=== PATIENT | male | born 1945 | race Caucasian/White ===

== ENCOUNTER → 2017-02-01 | Outpatient (CLI) | payer MEDICARE, BC ==
[~2017-02-01] MED LIST: ACET-2723 PO; AMLO10TA62 PO; ASPI-1085 PO; ATOR80TA26 PO; CALC-946 PO; CYAN1TAB46 PO; DOCU-129 PO; FENO160T9 PO; FISH OIL OMEGA1 EACH PO; FLEC100T2 PO; HYDR-4246 PO; INSU100C11 SQ; INSU100V13 SQ; LEVO125T48 PO; MAGN500C4 PO; METO-279 PO; OMEP20TA24 PO; WARF5TAB69 PO
--- NOTE | 2017-02-01 16:12 | DI ---
INDICATION: ITS.REASON: R06.02 Shortness of breath PROCEDURE: CHEST 2-VIEWS UPRIGHT (PA \T\ LAT) Encounter: Initial COMPARISON: 02/27/2014 FINDINGS: The lungs are clear without evidence of focal abnormal airspace opacity. There is no pleural effusion or pneumothorax. Left cardiac pacemaker. The heart size, mediastinal contours and pulmonary vascularity are unchanged. IMPRESSION: Stable chest without acute cardiopulmonary disease. .
[2017-02-01 16:39] LABS: PROBNP 495 PG/ML (0-175)
== END ==
LOC: IMA 15:53
PROVIDERS: ATTEND Internal Medicine Cardiovascular Disease
DX: R06.02 Shortness of breath (principal)
CPT/HCPCS: 36415; 83880